=== PATIENT | female | born 1960 | race Caucasian/White ===

== ENCOUNTER 2017-06-21 18:58 | Inpatient (IN) | payer SELFPAY ==
[~2017-06-21] VITALS: Ht 157.5 cm; Wt 63.8 kg
[~2017-06-21 18:58] MED LIST: ASPI-650 PO; ATOR20TA PO; BACL-19 PO; CETI10CA PO; CLON0.1T PO; CLON0.5T PO; CLON1TAB PO; FLUO20CA19 PO; FLUO40CA2 PO; FLUO40CA9 PO; OXYC10TA6 PO; OXYC15TA60 PO; TRAZ100T15 PO
[2017-06-21] MEDS ORDERED: ONDANSETRON 2MG/ML, 2ML IVPush ONE (19:30)
[2017-06-21] MEDS ORDERED: SODIUM CHLORIDE 0.9% 1,000ML IVBOLUS ONE (19:30)
[2017-06-21] MEDS ORDERED: SODIUM CHLORIDE FLUSH 10ML SYR IVF ONE (19:30)
[2017-06-21] MEDS ORDERED: FAMOTIDINE 20 MG/2 ML IVP ONE (19:30)
[2017-06-21] MEDS ORDERED: ONDANSETRON 2MG/ML, 2ML ONE (19:36)
[2017-06-21] MEDS ORDERED: FAMOTIDINE 20 MG/2 ML ONE (19:36)
[2017-06-21 19:37] LABS: ASPARTATE AMINO TRANSFERASE 12 U/L (15-37); BLOOD UREA NITROGEN 15 mg/dL (7-18)
[2017-06-21 19:50] LABS: HEMATOCRIT 41.1 % (34.6-47.8); HEMOGLOBIN 13.6 g/dL (11.7-16.4); WHITE BLOOD COUNT 6.7 x10^3/uL (3.4-10)
[2017-06-21] MEDS ORDERED: SODIUM CHLORIDE 0.9% 1,000 ML IV ONE (21:40)
[2017-06-21] MEDS ORDERED: SODIUM CHLORIDE FLUSH 10ML SYR IVF PRN (22:00)
[2017-06-21] MEDS ORDERED: ONDANSETRON 2MG/ML, 2ML IVPush PRN (22:00)
[2017-06-21] MEDS ORDERED: HYDROmorphone 1 MG/ML, 1ML IV ONE (22:00)
[2017-06-21] MEDS ORDERED: HYDROmorphone 1 MG/ML, 1ML IVPush PRN (22:00)
[2017-06-21] MEDS ORDERED: HYDROmorphone 1 MG/ML, 1ML ONE (22:03)
[2017-06-22] MEDS ORDERED: ONDANSETRON 2MG/ML, 2ML IVPush PRN ×2 (01:00→12:00)
[2017-06-22] MEDS ORDERED: DIPHENHYDRAMINE 50 MG/ML, 1ML IVPush PRN (01:00)
[2017-06-22 01:10] VITALS: BP 148/89
[2017-06-22] MEDS: HYDROmorphone 2 MG/ML, 1ML IVPush PRN ×4 (02:05→10:46)
[2017-06-22] MEDS: D5%-0.45% NACL 1,000 ML IV SCH ×2 (02:05→13:36)
[2017-06-22 02:11] VITALS: BP 153/92
[2017-06-22 06:45] VITALS: BP 135/83
[2017-06-22] MEDS ORDERED: BUPIVACAINE/PF 0.5% ONE (11:07)
[2017-06-22] MEDS ORDERED: EPINEPHRINE 1 MG/ML, 1ML ONE (11:07)
[2017-06-22] MEDS ORDERED: MIDAZOLAM 1 MG/ML, 2ML ONE (11:15)
[2017-06-22] MEDS ORDERED: FENTANYL PF 100 MCG/2ML ONE ×3 (11:15→12:42)
[2017-06-22] MEDS ORDERED: DEXAMETHASONE 4 MG/ML, 1ML ONE (11:34)
[2017-06-22] MEDS ORDERED: ROCURONIUM 10MG/ML,5ML ONE (11:34)
[2017-06-22] MEDS ORDERED: PROPOFOL 10 MG/ML, 20ML ONE (11:34)
[2017-06-22] MEDS ORDERED: CEFAZOLIN 1,000 MG ONE (11:34)
[2017-06-22] MEDS ORDERED: ONDANSETRON 2MG/ML, 2ML ONE (11:34)
[2017-06-22] MEDS ORDERED: SUCCINYLCHOLINE 20 MG/ML, 10ML ONE (11:34)
[2017-06-22] MEDS ORDERED: GLYCOPYRROLATE 0.4 MG/2 ML, 2ML ONE (11:34)
[2017-06-22] MEDS ORDERED: NEOSTIGMINE 1 MG/ML, 10ML ONE (11:34)
[2017-06-22] MEDS ORDERED: BUPIVACAINE/PF-EPI 0.5% 1:200K INFIL ONE (11:58)
[2017-06-22] MEDS ORDERED: OXYcodone 5 MG/5 ML ORAL.SOL UDC PO PRN (12:00)
[2017-06-22] MEDS ORDERED: ACETAMINOPHEN 325 MG TABLET PO PRN (12:00)
[2017-06-22] MEDS ORDERED: METOCLOPRAMIDE 5 MG/ML, 2ML IV PRN (12:00)
[2017-06-22] MEDS ORDERED: hydrALAzine 20 MG/ML, 1ML IV PRN (12:00)
[2017-06-22] MEDS ORDERED: LABETALOL 5MG/ML, 20ML IV PRN (12:00)
[2017-06-22] MEDS ORDERED: HYDROmorphone 1 MG/ML, 1ML IV PRN (12:00)
[2017-06-22] MEDS ORDERED: OXYcodone 5 MG/5 ML ORAL.SOL UDC ONE (12:37)
[2017-06-22] MEDS: FENTANYL PF 100 MCG/2ML IV PRN ×2 (12:44→12:51)
[2017-06-22 13:21] VITALS: BP 118/76
[2017-06-22] MEDS ORDERED: HYDROmorphone 2 MG/ML, 1ML IVPush PRN (14:00)
[2017-06-22] MEDS ORDERED: OXYC-306 PO (14:25)
[2017-06-22] MEDS ORDERED: IBUP-1222 PO (14:25)
[2017-06-22] MEDS ORDERED: OXYcodone/APAP 5/325MG TABLET PO PRN (14:30)
[2017-06-22] MEDS ORDERED: KETOROLAC 30 MG/1 ML IM SCH (14:30)
[2017-06-22] MEDS ORDERED: ENOXAPARIN 30 MG/0.3 ML SQ ONE (15:00)
[2017-06-22 16:34] VITALS: BP 120/76
== END 2017-06-22 16:40 | disposition home or self-care (01) | DRG 419 ==
LOC: ED 20:52 → EDIP 21:33 → 4NOR 22:46
PROVIDERS: ADMIT Surgery; ATTEND Surgery
PROC: 0FT44ZZ Resection of Gallbladder, Percutaneous Endoscopic Approach (ICD-10-PCS; principal; 2017-06-22 11:30)
DX: K80.10 Calculus of gallbladder with chronic cholecystitis without obstruction (principal); E78.5 Hyperlipidemia, unspecified; K21.9 Gastro-esophageal reflux disease without esophagitis; Z86.72 Personal history of thrombophlebitis; Z86.73 Personal history of transient ischemic attack (TIA), and cerebral infarction without residual deficits
CPT/HCPCS: 36415; 76700; 80053; 81001; 83690; 85025; 87077; 87086; 88304; 96361; 96374; 96375; J0171; J0690; J1100; J1170; J1650; J1885; J2250; J2405; J2704; J2710; J3010; J3490; J0330; J1200; J7030; S0028

== ENCOUNTER 2019-07-26 16:34 | Emergency (ER) | payer OTHER ==
[~2019-07-26] VITALS: Ht 160 cm; Wt 69.3 kg
[~2019-07-26 16:34] MED LIST changes: -CLON0.1T PO; +CLON0.1T22 PO; +IBUP-1222 PO; +OXYC-306 PO; +OXYC-307 PO; +TRAZ-137 PO; -TRAZ100T15 PO
--- NOTE | 2019-07-26 16:57 | NUR ---
PT AMBULATORY WITH STEADY GAIT TO ROOM. CHANGING INTO GOWN NOW.
--- NOTE | 2019-07-26 17:02 | NUR ---
PT HERE FOR COUGH, BODY ACHES, JOHNSON THAT HAVE BEEN PRESENT FOR TWO DAYS. HAS TAKEN MUCINEX. STATES THERE IS NO PLEGHM WITH COUGH. HAS NOT TAKEN ANY OTHER MEDICATION. STATES SHE HAS LIKELY BEEN AROUND PEOPLE WHO ARE SICK SHE IS A [employer]IP[employer] AT A [employer]. CURRENTLY RESTING ON GURNEY. NADN. VSS. RESPIRATIONS EVEN AND UNLABORED. PROVIDED WITH WARM BLANKET.
[2019-07-26 17:04] VITALS: BP 131/76
[2019-07-26 17:25] LABS: BASOPHILS # (AUTO) 0.04 x10^3/uL (0-0.1); BASOPHILS % (AUTO) 1 % (0-1); EOSINOPHILS # (AUTO) 0.11 x10^3/uL (0-0.4); EOSINOPHILS % (AUTO) 2 % (1-7); LYMPHOCYTES # (AUTO) 0.91 x10^3/uL (1-3.4); LYMPHOCYTES % (AUTO) 18 % (22-44); MD NO; MEAN CORPUSCULAR HEMOGLOBIN 29.3 pg (27.0-34.8); MEAN CORPUSCULAR HGB CONC 32.8 g/dL (32.4-35.8); MEAN CORPUSCULAR VOLUME 89.5 fL (80-100); MEAN PLATELET VOLUME 7.5 fL (7.4-10.4); MONOCYTES # (AUTO) 0.19 x10^3/uL (0.2-0.8); MONOCYTES % (AUTO) 4 % (2-9); NEUTROPHILS # (AUTO) 3.89 x10^3/uL (1.8-6.8); NEUTROPHILS % (AUTO) 76 % (42-75); PLATELET COUNT 300 x10^3/uL (130-400); RED BLOOD COUNT 4.07 x10^6/uL (3.82-5.3); RED CELL DISTRIBUTION WIDTH 13.3 % (9.6-15.2)
--- NOTE | 2019-07-26 17:28 | NUR ---
PT BACK FROM RADIOLOGY. RESTING ON [employer]. CONNECTED TO MONITOR.
[2019-07-26 17:35] LABS: ALBUMIN 3.5 g/dL (3.4-5.0); ANION GAP 7 mmol/L (5-15); CALCIUM 8.7 mg/dL (8.5-10.1); CHLORIDE 113 mmol/L (98-107); CREATININE 0.76 mg/dL (0.55-1.02)
--- NOTE | 2019-07-26 17:52 | NUR ---
PT AWARE OF DC PLAN. GETTING DRESSED NOW.
== END 2019-07-26 18:00 | disposition home or self-care (01) ==
LOC: ED 17:53
DX: J00 Acute nasopharyngitis [common cold] (principal); B34.9 Viral infection, unspecified; F41.1 Generalized anxiety disorder; E11.9 Type 2 diabetes mellitus without complications; E78.5 Hyperlipidemia, unspecified; F32.9 Major depressive disorder, single episode, unspecified; Z72.9 Problem related to lifestyle, unspecified; Z90.710 Acquired absence of both cervix and uterus; Z88.5 Allergy status to narcotic agent; Z87.891 Personal history of nicotine dependence; Z86.73 Personal history of transient ischemic attack (TIA), and cerebral infarction without residual deficits; Z79.899 Other long term (current) drug therapy
CPT/HCPCS: 36415; 71046; 80048; 82040; 85025; 93005; 99284

== ENCOUNTER 2020-01-04 17:08 | Emergency (ER) | payer OTHER ==
[~2020-01-04] VITALS: Ht 160 cm; Wt 69.0 kg
[~2020-01-04 17:08] MED LIST changes: -TRAZ-137 PO; +TRAZ-175 PO
[2020-01-04] MEDS ORDERED: OXYcodone/APAP 5/325MG TABLET PO ONE ×2 (18:30→21:00)
[2020-01-04] MEDS ORDERED: ONDANSETRON 2MG/ML, 2ML IVPush ONE (18:30)
[2020-01-04] MEDS ORDERED: ONDANSETRON 2MG/ML, 2ML ONE (18:35)
[2020-01-04] MEDS ORDERED: OXYcodone/APAP 5/325MG TABLET ONE ×2 (18:35→20:37)
[2020-01-04 18:45] LABS: ALANINE AMINOTRANSFERASE 17 U/L (12-78); ALBUMIN 3.9 g/dL (3.4-5.0); ANION GAP 8 mmol/L (5-15); CALCIUM 8.8 mg/dL (8.5-10.1); CHLORIDE 108 mmol/L (98-107)
[2020-01-04 18:48] LABS: ALKALINE PHOSPHATASE 63 U/L (45-117); BASOPHILS # (AUTO) 0.04 x10^3/uL (0-0.1); BASOPHILS % (AUTO) 1 % (0-1); BILIRUBIN,TOTAL 0.2 mg/dL (0.2-1.0); EOSINOPHILS # (AUTO) 0.16 x10^3/uL (0-0.4); EOSINOPHILS % (AUTO) 3 % (1-7); LYMPHOCYTES # (AUTO) 2.03 x10^3/uL (1-3.4); LYMPHOCYTES % (AUTO) 42 % (22-44); MD NO; MEAN CORPUSCULAR VOLUME 87.8 fL (80-100); MEAN PLATELET VOLUME 7.8 fL (7.4-10.4); MONOCYTES # (AUTO) 0.31 x10^3/uL (0.2-0.8); MONOCYTES % (AUTO) 6 % (2-9); NEUTROPHILS # (AUTO) 2.32 x10^3/uL (1.8-6.8); NEUTROPHILS % (AUTO) 48 % (42-75); PLATELET COUNT 270 x10^3/uL (130-400); RED BLOOD COUNT 4.19 x10^6/uL (3.82-5.3); RED CELL DISTRIBUTION WIDTH 13.7 % (9.6-15.2); TOTAL PROTEIN 7.4 g/dL (6.4-8.2)
[2020-01-04] MEDS ORDERED: OMNIPAQUE 350 MG/ML, 100ML BOTTLE ONE (19:23)
[2020-01-04 19:58] LABS: MICROSCOPIC AUTO
[2020-01-04 20:01] LABS: CULTURE INDICATED? YES
[2020-01-04] MEDS ORDERED: CEFDINIR 300 MG CAPSULE PO ONE (20:30)
[2020-01-04] MEDS ORDERED: CEFDINIR 300 MG CAPSULE ONE (20:39)
[2020-01-04 20:57] VITALS: BP 134/72
--- NOTE | 2020-01-04 20:57 | NUR ---
Gave Pt DC instructions and Rx instructions. Pt verbalized understanding. Pt ambulatory and no distress noted at this time.
== END 2020-01-04 21:00 | disposition home or self-care (01) ==
LOC: ED 17:28
DX: N10 Acute pyelonephritis (principal); N39.0 Urinary tract infection, site not specified; E11.9 Type 2 diabetes mellitus without complications; F17.200 Nicotine dependence, unspecified, uncomplicated; Z86.73 Personal history of transient ischemic attack (TIA), and cerebral infarction without residual deficits; Z90.49 Acquired absence of other specified parts of digestive tract; Z90.710 Acquired absence of both cervix and uterus
CPT/HCPCS: 36415; 74177; 80053; 81001; 83690; 85025; 87086; 96374; 99285; J2405; Q9967

== ENCOUNTER 2020-01-09 10:04 | Emergency (ER) | payer OTHER ==
[~2020-01-09] VITALS: Ht 160 cm; Wt 97.9 kg
--- NOTE | 2020-01-09 10:15 | NUR ---
PT HAS CO BLADDER PAIN/NAUSEA/R FLANK PAIN. HERE PAM FOR UTI, CURRENTLY TAKING ABX BUT SXS NOT GETTING BETTER. MD AT BEDSIDE. EMILY CP, COUGH, COB. PLAN STRAIGHT CATH FOR UA
--- NOTE | 2020-01-09 11:00 | NUR ---
LAB AT BEDSIDE
[2020-01-09 11:19] LABS: BASOPHILS # (AUTO) 0.04 x10^3/uL (0-0.1); BASOPHILS % (AUTO) 1 % (0-1); EOSINOPHILS # (AUTO) 0.16 x10^3/uL (0-0.4); EOSINOPHILS % (AUTO) 5 % (1-7); LYMPHOCYTES # (AUTO) 1.17 x10^3/uL (1-3.4); LYMPHOCYTES % (AUTO) 32 % (22-44); MD NO; MEAN CORPUSCULAR HGB CONC 32.8 g/dL (32.4-35.8); MEAN CORPUSCULAR VOLUME 88.5 fL (80-100); MEAN PLATELET VOLUME 7.8 fL (7.4-10.4); MONOCYTES % (AUTO) 8 % (2-9); NEUTROPHILS # (AUTO) 1.98 x10^3/uL (1.8-6.8); NEUTROPHILS % (AUTO) 54 % (42-75); PLATELET COUNT 311 x10^3/uL (130-400); RED BLOOD COUNT 4.63 x10^6/uL (3.82-5.3); RED CELL DISTRIBUTION WIDTH 13.8 % (9.6-15.2)
[2020-01-09 11:21] LABS: ALANINE AMINOTRANSFERASE 18 U/L (12-78); ALBUMIN 3.8 g/dL (3.4-5.0); ANION GAP 7 mmol/L (5-15); CALCIUM 9.3 mg/dL (8.5-10.1); CHLORIDE 108 mmol/L (98-107); CREATININE 0.75 mg/dL (0.55-1.02)
[2020-01-09 11:23] LABS: ALKALINE PHOSPHATASE 70 U/L (45-117); BILIRUBIN,TOTAL 0.6 mg/dL (0.2-1.0); TOTAL PROTEIN 7.5 g/dL (6.4-8.2)
--- NOTE | 2020-01-09 11:30 | NUR ---
STRAIGHT CATH FOR UA. THERAWORX USED TO CLEAN PT. PT TOLERATED STRAIGHT CATH W OUT DIFFICULTY
[2020-01-09 12:09] LABS: CULTURE INDICATED? YES; MICROSCOPIC INDICATED
== END 2020-01-09 12:39 | disposition home or self-care (01) ==
LOC: ED 10:34
DX: R10.84 Generalized abdominal pain (principal); F17.210 Nicotine dependence, cigarettes, uncomplicated
CPT/HCPCS: 36415; 80053; 81001; 85025; 87086; 99283

== ENCOUNTER 2020-02-06 14:07 | Emergency (ER) | payer OTHER ==
[~2020-02-06] VITALS: Ht 160 cm; Wt 65.0 kg
--- NOTE | 2020-02-06 14:48 | NUR ---
WAS RUNNING IN THE PARK THIS AM, TRIPPED, FELL, LANDED ON RT ARM. C/O PAIN TO RT SHOULDER & UPPER ARM W/ NUMBNESS TO 5TH FINGER. RADIAL PULSE STRONG & REG. + ROM RT HAND, ELBOW. LIMITED ROM RT SHOULDER R/T PAIN. SKIN INTACT, NO DEFORMITY OR BRUISING NOTED AT THIS TIME. RT HANDEDNESS. NO PAIN MEDS TAKEN TODAY.
[2020-02-06] MEDS ORDERED: TUMERIC (14:57)
[2020-02-06] MEDS ORDERED: METH750T2 PO (14:57)
[2020-02-06] MEDS ORDERED: FLUO20CA23 PO (14:57)
[2020-02-06] MEDS ORDERED: ASPI-496 PO (14:57)
[2020-02-06] MEDS ORDERED: HYDROmorphone 1 MG/ML, 1ML INJ ONE (15:54)
[2020-02-06 16:00] VITALS: BP 119/65
[2020-02-06] MEDS ORDERED: HYDROmorphone 1 MG/ML, 1ML INJ IM ONE (16:00)
--- NOTE | 2020-02-06 16:00 | NUR ---
DILAUDID GIVEN PER EMAR
--- NOTE | 2020-02-06 16:08 | NUR ---
TO XR PER ALCIRA
== END 2020-02-06 16:58 | disposition home or self-care (01) ==
LOC: ED 15:08
DX: G89.11 Acute pain due to trauma (principal); M25.511 Pain in right shoulder; M19.011 Primary osteoarthritis, right shoulder; E11.9 Type 2 diabetes mellitus without complications; E78.5 Hyperlipidemia, unspecified; Z90.710 Acquired absence of both cervix and uterus; Z90.49 Acquired absence of other specified parts of digestive tract; Z86.73 Personal history of transient ischemic attack (TIA), and cerebral infarction without residual deficits
CPT/HCPCS: 73030; 96372; 99283; J1170

== ENCOUNTER 2020-09-28 09:12 | Emergency (ER) | payer OTHER ==
[~2020-09-28] VITALS: Ht 160 cm; Wt 65.3 kg
[~2020-09-28 09:12] MED LIST changes: +ASPI-496 PO; +FLUO20CA23 PO; +METH750T2 PO; +OMEP-110 PO; -OXYC-306 PO; -OXYC-307 PO; +OXYC-380 PO; +OXYC1TAB17 PO; +SERT50TA28 PO; +TUMERIC
--- NOTE | 2020-09-28 09:29 | NUR ---
ER PROVIDER AT BEDSIDE FOR EVALUATION.
--- NOTE | 2020-09-28 09:34 | NUR ---
PATIENT WALKED BACK FROM TRIAGE WITH CHIEF C/O BLOOD IN STOOL. PER PATIENT SHE HAS BEEN HAVING ABD PAIN AND NAUSEA SINCE LAST SATURDAY, HAD ONE EPISODE OF EMESIS LAST NIGHT AND DIARRHEA YESTERDAY AND TODAY. THIS MORNING PATIENT REPORTS SHE HAD BRIGHT RED BLOOD IN HER STOOL, PER PATIENT AMOUNT OF BLOOD IS "A LOT." BOWEL SOUNDS NORMOACTIVE, NADN, VSS, CALL LIGHT WITHIN REACH.
[2020-09-28] MEDS ORDERED: PANTOPRAZOLE 40 MG IV ONE (09:39)
[2020-09-28] MEDS ORDERED: ONDANSETRON 2MG/ML, 2ML ONE (09:39)
[2020-09-28] MEDS ORDERED: SODIUM CHLORIDE FLUSH 10ML SYR IVF ONE (10:00)
[2020-09-28] MEDS ORDERED: PANTOPRAZOLE 40 MG IV IVPush ONE (10:00)
[2020-09-28] MEDS ORDERED: ONDANSETRON 2MG/ML, 2ML IVPush ONE (10:00)
[2020-09-28] MEDS ORDERED: SODIUM CHLORIDE 0.9% 1,000ML IVBOLUS ONE (10:00)
--- NOTE | 2020-09-28 10:02 | NUR ---
22 GAUGE IV STARTED LEFT HAND, BLOOD DRAWN AND GIVEN TO DAIRY NUTRITIONIST. PATIENT MEDICATED PER eMAR, NADN, VSS, CALL LIGHT WITHIN REACH.
[2020-09-28 10:06] LABS: BASOPHILS % (AUTO) 1 % (0-1); EOSINOPHILS % (AUTO) 1 % (1-7); LYMPHOCYTES % (AUTO) 20 % (22-44); MEAN CORPUSCULAR HEMOGLOBIN 29.8 pg (27.0-34.8); MEAN PLATELET VOLUME 6.9 fL (7.4-10.4); MONOCYTES % (AUTO) 7 % (2-9); NEUTROPHILS % (AUTO) 72 % (42-75); PLATELET COUNT 384 x10^3/uL (130-400); RED BLOOD COUNT 4.58 x10^6/uL (3.82-5.3); RED CELL DISTRIBUTION WIDTH 13.2 % (9.6-15.2)
[2020-09-28 10:08] LABS: MD NO
[2020-09-28 10:18] LABS: ALANINE AMINOTRANSFERASE 29 U/L (12-78); ALBUMIN 3.8 g/dL (3.4-5.0); ANION GAP 9 mmol/L (5-15); CALCIUM 9.2 mg/dL (8.5-10.1); CHLORIDE 107 mmol/L (98-107); CREATININE 0.95 mg/dL (0.55-1.02)
[2020-09-28 10:20] LABS: ALKALINE PHOSPHATASE 83 U/L (45-117); BILIRUBIN,TOTAL 0.4 mg/dL (0.2-1.0); TOTAL PROTEIN 7.9 g/dL (6.4-8.2)
--- NOTE | 2020-09-28 11:52 | NUR ---
PATIENT TO CT SCAN.
[2020-09-28] MEDS ORDERED: OMNIPAQUE 350 MG/ML, 100ML BOTTLE ONE (12:12)
[2020-09-28 13:02] VITALS: BP 123/77
--- NOTE | 2020-09-28 13:23 | NUR ---
Patient given discharge instructions and prescriptions and they have confirmed that they understand the instructions, all questions answered. Patient stable and ambulatory with steady gait from ED with all belongings.
== END 2020-09-28 13:24 | disposition home or self-care (01) ==
LOC: ED 10:12
DX: K29.01 Acute gastritis with bleeding (principal); R11.2 Nausea with vomiting, unspecified; R19.7 Diarrhea, unspecified; K62.5 Hemorrhage of anus and rectum; R10.9 Unspecified abdominal pain; E11.9 Type 2 diabetes mellitus without complications; I10 Essential (primary) hypertension; E78.5 Hyperlipidemia, unspecified; K21.9 Gastro-esophageal reflux disease without esophagitis; Z90.49 Acquired absence of other specified parts of digestive tract; Z86.73 Personal history of transient ischemic attack (TIA), and cerebral infarction without residual deficits; Z87.891 Personal history of nicotine dependence; Z90.710 Acquired absence of both cervix and uterus
CPT/HCPCS: 36415; 74177; 80053; 83690; 85025; 93005; 99285; C9113; J2405; J7030; Q9967; 99284

== ENCOUNTER 2020-10-09 17:49 | Emergency (ER) | payer OTHER ==
[~2020-10-09] VITALS: Ht 160 cm; Wt 67.6 kg
[~2020-10-09 17:49] MED LIST changes: -ASPI-650 PO; +ASPI325T20 PO; +METH-640 PO; -METH750T2 PO
[2020-10-09 17:55] VITALS: BP 138/84
--- NOTE | 2020-10-09 18:20 | NUR ---
PT THINKS SHE HAD TIA. WAS TOLD SHE WAS TALKING SLOWER TODAY AND HAD LEG WEAKNESS THE OTHER DAY. N/V PAST WEEK. DENIES CP. DENIES VISION CHANGES.
--- NOTE | 2020-10-09 18:49 | NUR ---
PT AMBULATED TO BATHROOM FOR UA REPORT TO Ros Dunbar
--- NOTE | 2020-10-09 18:55 | NUR ---
Report received from DAVON Roldan. This RN to assume care.
[2020-10-09 19:12] LABS: MICROSCOPIC NOT IND
[2020-10-09 19:25] LABS: AMPHETAMINE SCREEN, URINE Negative (Negative); BARBITURATE SCREEN, URINE Negative (Negative); BENZODIAZEPINE SCREEN, URINE Positive (Negative); CANNABINOID SCREEN, URINE Negative (Negative); COCAINE SCREEN, URINE Negative (Negative); METHADONE SCREEN, URINE Negative (Negative); OPIATE SCREEN, URINE Negative (Negative)
[2020-10-09 19:25] LABS: BASOPHILS % (AUTO) 1 % (0-1); EOSINOPHILS % (AUTO) 2 % (1-7); LYMPHOCYTES % (AUTO) 26 % (22-44); MEAN CORPUSCULAR HEMOGLOBIN 29.4 pg (27.0-34.8); MEAN CORPUSCULAR HGB CONC 33.4 g/dL (32.4-35.8); MEAN PLATELET VOLUME 7.1 fL (7.4-10.4); MONOCYTES % (AUTO) 7 % (2-9); NEUTROPHILS % (AUTO) 63 % (42-75); PLATELET COUNT 361 x10^3/uL (130-400); RED CELL DISTRIBUTION WIDTH 13.3 % (9.6-15.2)
[2020-10-09 19:26] LABS: MD NO
[2020-10-09 19:33] LABS: ALBUMIN 3.9 g/dL (3.4-5.0); ANION GAP 7 mmol/L (5-15); CALCIUM 8.5 mg/dL (8.5-10.1); CHLORIDE 115 mmol/L (98-107); CREATININE 0.56 mg/dL (0.55-1.02)
[2020-10-09 19:37] LABS: TROPONIN I < 0.015 ng/mL (0.000-0.045)
--- NOTE | 2020-10-09 21:40 | NUR ---
Patient tbdc. Upon entering the room with paperwork, patient not present. Not in bathroom or anywhere else in the department. Patient eloped without d/c papers. Patient was AAOx4, GCS 15.
== END 2020-10-09 21:42 | disposition left against medical advice (07) ==
LOC: ED 18:10
DX: R41.82 Altered mental status, unspecified (principal); F10.129 Alcohol abuse with intoxication, unspecified; R53.83 Other fatigue; R51.9 Headache, unspecified; R94.31 Abnormal electrocardiogram [ECG] [EKG]; E11.9 Type 2 diabetes mellitus without complications; E78.5 Hyperlipidemia, unspecified; K21.9 Gastro-esophageal reflux disease without esophagitis; F17.200 Nicotine dependence, unspecified, uncomplicated; Z90.49 Acquired absence of other specified parts of digestive tract; Z90.710 Acquired absence of both cervix and uterus; Z88.5 Allergy status to narcotic agent; Z86.73 Personal history of transient ischemic attack (TIA), and cerebral infarction without residual deficits; Z88.6 Allergy status to analgesic agent; Y90.0 Blood alcohol level of less than 20 mg/100 ml
CPT/HCPCS: 36415; 70450; 80048; 80307; 80320; 81003; 82040; 82140; 84484; 85025; 93005; 99285; G0480

== ENCOUNTER 2021-03-16 19:36 | Emergency (ER) | payer OTHER ==
[~2021-03-16] VITALS: Ht 160 cm; Wt 64.4 kg
[2021-03-16 20:10] VITALS: BP 104/61
--- NOTE | 2021-03-16 20:49 | NUR ---
TECHNICAL SERVICE REP: PT. TO ROOM FROM LOBBY AT THIS TIME. AMBULATORY WITH STEADY GAIT.
[2021-03-16] MEDS ORDERED: HYDROcodone/APAP 5/325 TABLET PO ONE ×2 (21:00→23:00)
[2021-03-16] MEDS ORDERED: HYDROcodone/APAP 5/325 TABLET ONE ×2 (21:19→22:48)
== END 2021-03-16 23:03 | disposition home or self-care (01) ==
LOC: ED 20:06
DX: S42.402A Unspecified fracture of lower end of left humerus, initial encounter for closed fracture (principal); F17.290 Nicotine dependence, other tobacco product, uncomplicated; E11.9 Type 2 diabetes mellitus without complications; E78.5 Hyperlipidemia, unspecified; K21.9 Gastro-esophageal reflux disease without esophagitis; Z86.73 Personal history of transient ischemic attack (TIA), and cerebral infarction without residual deficits; Z90.49 Acquired absence of other specified parts of digestive tract; Z90.710 Acquired absence of both cervix and uterus; W01.0XXA Fall on same level from slipping, tripping and stumbling without subsequent striking against object, initial encounter; Y93.89 Activity, other specified; Y92.410 Unspecified street and highway as the place of occurrence of the external cause; Y99.8 Other external cause status
CPT/HCPCS: 29105; 99283